=== PATIENT | male | born 1940 | race Caucasian/White ===

== ENCOUNTER 2018-06-06 17:55 | Emergency (ER) | payer MEDICARE, OTHER, MEDICAID ==
[2018-06-06 19:39] LABS: ADD MAN DIFF? NO
[2018-06-06] MEDS: METOCLOPRAMIDE 10 MG INJ IV (19:42)
[2018-06-06 19:43] LABS: ABNORMAL IP MESSAGE 1; BASOPHIL # 0.1 10^3/ul (0.0-0.1); BASOPHILS % 0.5 % (0.0-2.0); EOSINOPHILS # 0.1 10^3/ul (0.0-0.5); EOSINOPHILS % 0.9 % (0.0-7.0); HEMATOCRIT 36.9 % (42.0-52.0); HEMOGLOBIN 12.1 g/dl (14.0-18.0); LYMPHOCYTES # 5.1 10^3/ul (0.8-2.9); LYMPHOCYTES % 46.4 % (15.0-51.0); MEAN CORPUSCULAR HGB CONC 32.8 g/dl (32.0-37.0); MEAN CORPUSCULAR VOLUME 97.6 fl (82.0-101.0); MEAN PLATELET VOLUME 11.2 fl (7.4-10.4); MONOCYTE # 0.6 10^3/ul (0.3-0.9); MONOCYTES % 5.8 % (0.0-11.0); NEUTROPHIL # 5.1 10^3/ul (1.6-7.5); PLATELET COUNT 218 10^3/UL (140-415); POSITIVE DIFF @See below; RED BLOOD COUNT 3.78 10^6/ul (4.70-6.10); RED CELL DISTRIBUTION WIDTH 15.8 % (11.5-14.5)
[2018-06-06 20:05] LABS: ALANINE AMINOTRANSFERASE 39 IU/L (13-69); ALBUMIN 4.1 g/dl (3.3-4.9); ALBUMIN/GLOBULIN RATIO 1.41; ALKALINE PHOSPHATASE 118 IU/L (42-121); ANION GAP 10 (5-13); ASPARTATE AMINO TRANSFERASE 48 IU/L (15-46); BILIRUBIN,INDIRECT 0.3 mg/dl (0-1.1); BILIRUBIN,TOTAL 0.3 mg/dl (0.2-1.3); BLOOD UREA NITROGEN 18 mg/dl (7-20); CALCIUM 9.3 mg/dl (8.4-10.2); CARBON DIOXIDE 30 mmol/L (21-31); CHLORIDE 101 mmol/L (97-110); CREATININE 1.21 mg/dl (0.61-1.24); GLUCOSE 220 mg/dl (70-220); LIPASE 67 U/L (23-300); POTASSIUM 4.6 mmol/L (3.5-5.1); SODIUM 141 mmol/L (135-144)
[2018-06-06] MEDS: CHLORPROMAZINE 25 MG INJ IM (20:31)
== END 2018-06-06 22:41 | disposition home or self-care (01) ==
LOC: E/R 17:55
DX: R10.13 Epigastric pain (principal); R40.2142 Coma scale, eyes open, spontaneous, at arrival to emergency department; R40.2252 Coma scale, best verbal response, oriented, at arrival to emergency department; R40.2362 Coma scale, best motor response, obeys commands, at arrival to emergency department; I10 Essential (primary) hypertension; E11.9 Type 2 diabetes mellitus without complications; Z79.4 Long term (current) use of insulin
CPT/HCPCS: 36415; 71045; 74176; 80053; 83690; 85025; 93005; 96372; 96374; 99285-25